=== PATIENT | female | born 1985 | race Caucasian/White ===

== ENCOUNTER 2017-04-26 18:18 | Outpatient (CLI) | payer OTHER ==
[2017-04-26 18:50] VITALS: BP 114/64
[2017-04-26] MEDS ORDERED: PREN-127 PO (18:59)
--- NOTE | 2017-04-26 20:41 | History & Physical ---
History of Present Illness Age of Patient: 31 : 2 Para or TPAL: 1001 EDC per LMP: June 13, 2017 EDC per U/S: June 13, 2017 Estimated Gestational Age: 33.1 Chief Complaint Contractions. History of Present Illness Comes to OB unit due to uterine contractions Q 3-10 minutes that started at about 1600 hours today. After arrival to the hospital, the contractions almost resolved, and she's had only a couple contractions in the last couple of hours. No vaginal bleeding lately, no fluid leakage. She has a history of placenta previa noted on anatomic ultrasound at about 20 weeks, which then became a low- lying placenta. She's had intermittent spotting during this , which resolved 2 weeks ago. She will have at least 1 more ultrasound. No other complications with this . Fetus remains active. record is unavailable at this time. History Obstetrical History: Previous 40 week vaginal delivery. Past Medical History: Augmentation mammoplasty in 2002 Allergies: Coded Allergies: Sulfa (Sulfonamide Antibiotics) (Verified Allergy, Unknown, UNKNOWN, ) REACTION CHILD Social History: , present and supportive. Denies use of alcohol, tobacco, or illicit drugs. Med Rec Home Meds Reported Medications Vits W-Ca,Fe,Fa(<1MG) ( VITAMINS) 1 Each Tablet, 1 EACH PO DAILY, TAB 04/26/17 Review of Systems All Systems Reviewed/Normal: Yes Exam General Exam Vital Signs Vital Signs Date Time Temp Pulse Resp B/P (MAP) Pulse Ox O2 Delivery O2 Flow Rate FiO2 04/26/17 18:50 99.6 91 20 114/64 (81) 95 Room Air General Apperance: Alert/Awake/No Acute Distress Neuro: No Gross deficits Eyes: Normal Extraocular Movement & Vison ENT: Normal, Moist Mucous Membranes Neck: No Masses Cardiovascular: Regular Rate and Rhythm Respiratory: No Respiratory Distress, Clear to Auscultation Abdomen: Gravid - Non-Tender : No CVA Tenderness Musculoskeletal: No Weakness/Pain Extremities: No Cyanosis,Clubbing or Edema, Reflexes (2+/4 and symmetric), No Tender Calves Integumentary: Skin Intact without Lesions or Rash Psychological: Alert & Oriented X3, Appropriate Mood & Affect Cervical Dialation: 0 (internal os closed, external os 2 cm) Cervical Effacement (%): 0 Cervical Consistency: Firm Cervical Position: Mid Station: -2 Presentation: Vertex Fetus Heart Tones: 140 FHT Category: I Medical Decision Making VTE Prophylasis: Adult Pharmacological Contraindicati: Pt at Low Risk for VTE Mechanical Contraindications: Pt at Low Risk for VTE Assessment and Plan Problems: (1) uterine contractions Assessment & Plan: Since patient's contractions are now minimal, and since there is no cervical change, I don't think that fFN is indicated at this time. She is sent home with PTL precautions. She will return to keep her clinic appointment in 1 week. (2) with 33 completed weeks gestation Copies to: KYRA ELIAS MD, MARK F MD Apr 26, 2017 20:23
== END 2017-04-26 21:00 | disposition home or self-care (01) ==
LOC: OB 18:18 → L&D 18:18 → UNDOADMOB 18:18 → OB 18:18 → L&D 21:00 → UNDODISOB 21:00 → OB 21:00
PROVIDERS: ATTEND Obstetrics & Gynecology
DX: O47.03 False labor before 37 completed weeks of gestation, third trimester (principal); Z3A.33 33 weeks gestation of pregnancy
CPT/HCPCS: 59025; 81001; 99213; G0378; G0379

== ENCOUNTER → 2017-05-15 | Outpatient (REF) | payer OTHER ==
[~2017-05-15] MED LIST: PREN-127 PO
== END ==
LOC: ZZSENDIN 14:14
PROVIDERS: ATTEND Obstetrics & Gynecology
DX: O42.00 Premature rupture of membranes, onset of labor within 24 hours of rupture, unspecified weeks of gestation (principal)
CPT/HCPCS: 84112

== ENCOUNTER 2017-06-06 05:38 | Inpatient (IN) | payer OTHER ==
[~2017-06-06] VITALS: Ht 167.6 cm; Wt 76.2 kg
[2017-06-06] MEDS ORDERED: DLR(*) 1000 ML BAG 1,000 ML IV SCH (05:39)
[2017-06-06] MEDS ORDERED: OXYTOCIN 30 UNIT/D5LR 500 ML 500 ML IV PRN ×2 (05:39)
[2017-06-06] MEDS ORDERED: FAMOTIDINE(*) 20MG/50ML PREMIX 50 ML IVPB PRN (05:39)
[2017-06-06] MEDS ORDERED: LIDOCAINE/SOD BICARB 8.4% SYR SC PRN (05:40)
[2017-06-06] MEDS ORDERED: METOCLOPRAMIDE 10 MG/2 ML SDV IVP PRN (05:40)
[2017-06-06] MEDS ORDERED: cefOXitin/DEX(*) 2GM/50ML PREM 50 ML IVPB PRN (05:40)
[2017-06-06] MEDS ORDERED: TERBUTALINE SULF 1 MG/ML VIAL SUBQ PRN (05:40)
[2017-06-06] MEDS ORDERED: fentaNYL CITR 100 MCG/2 ML AMP IVP PRN (05:40)
[2017-06-06] MEDS ORDERED: LIDOCAINE 1% LOCAL 300 MG/30ML INJ PRN (05:40)
[2017-06-06] MEDS ORDERED: MISOPROSTOL 25 MCG CAP PV PRN (05:40)
[2017-06-06] MEDS: LR(*) 1000 ML BAG 1,000 ML IV SCH ×2 (06:28→10:18)
[2017-06-06 06:32] LABS: PLATELET COUNT, AUTOMATED 269 K/uL (150-450)
[2017-06-06 07:43] VITALS: BP 135/86; Ht 167.6 cm; Wt 76.2 kg
--- NOTE | 2017-06-06 08:39 | History & Physical ---
History of Present Illness Age of Patient: 31 : 2 Para or TPAL: 1001 EDC per LMP: June 13, 2017 Estimated Gestational Age: 39 Chief Complaint IOL History of Present Illness The patient is a 31 year old 2 para 1001 admitted at 39 weeks estimated gestational age with an estimated date of delivery 04/13/17 . Patient is admitted for induction of labor for favorable cervix at term . No vaginal bleeding. Good movement and occasional contractions. She was evaluated for active labor. She had an uncomplicated course. Her record was reviewed. History Allergies: Coded Allergies: Sulfa (Sulfonamide Antibiotics) (Verified Allergy, Unknown, UNKNOWN, ) REACTION CHILD Social History: , present and supportive. Denies use of alcohol, tobacco, or illicit drugs. Family History: No Family History of: FH: asthma FH: diabetes mellitus FH: heart disease FH: hypertension Malignant hyperthermia Med Rec Home Meds Reported Medications Vits W-Ca,Fe,Fa(<1MG) ( VITAMINS) 1 Each Tablet, 1 EACH PO DAILY, TAB 04/26/17 Exam General Exam Vital Signs Vital Signs Date Time Temp Pulse Resp B/P (MAP) Pulse Ox O2 Delivery O2 Flow Rate FiO2 06/06/17 07:43 88 15 135/86 (102) 97 Room Air Cardiovascular: Regular Rate and Rhythm Respiratory: Clear to Auscultation Abdomen: Gravid - Non-Tender Extremities: No Edema Cervical Dialation: 3 (RN) Uterine Contractions(Q min): 3 Fetus Heart Tones: 150 Heart Tone Variabilty: Moderate FHT Category: I Medical Decision Making Data Points Result Diagram: 06/06/17 0620 Assessment and Plan Problems: (1) , normal subsequent Assessment & Plan: PITOCIN STARTED FOR FAVORABLE CERVIX AT TERM FOR INDUCTION. AROM CLEAR FLUID ANTICIPATE VAGINAL DELIVERY Copies to: MAXIMUS CARDOSO MD, JOHN MD Jun 06, 2017 08:38
[2017-06-06] MEDS ORDERED: fentaNYL CITR 100 MCG/2 ML AMP IT PRN (10:05)
[2017-06-06] MEDS ORDERED: LIDOCAINE/PF 2% 200MG/10ML AMP 200 MG/10 ML AMPUL EPI PRN (10:05)
[2017-06-06] MEDS ORDERED: BUPIVACAINE 0.5% INJ 30ML VIAL EPI PRN (10:05)
[2017-06-06] MEDS ORDERED: EPHEDRINE SULFATE/NS/PF 50 MG/10 ML SYRINGE IVP PRN (10:05)
[2017-06-06] MEDS ORDERED: LIDO/EPI 2% MPF 1:200,000 20ML EPI PRN (10:05)
[2017-06-06] MEDS ORDERED: FENTANYL/ROPIVACAINE 100 ML BAG EPI PRN (10:05)
[2017-06-06] MEDS ORDERED: EPIDURAL KEYS XX PRN (10:05)
[2017-06-06] MEDS ORDERED: BUPIVACAINE 0.25% MPF INJ EPI PRN (10:05)
[2017-06-06] MEDS ORDERED: ePHEDrine 25 MG/5 ML DISP.SYR IVP PRN (10:20)
--- NOTE | 2017-06-06 11:03 | OB Delivery Note ---
Delivery Note Vaginal Delivery Type: Spont. Vaginal Delivery Delivery Date: Jun 06, 2017 Delivery Time: 10:46 Estimated Gestational Age(wks): 39 Delivery Anesthesia: Epidural, Local Infant Sex: Female Weight (gms): 27[address] Apgars: 1 Minute (9), 5 Minute (9) Repair Needed: Laceration, Superficial, Perineal Estimated Blood Loss: 400 Delivery Complications: Nuchal Cord Notes: IOL WITH PITOCIN, PROGRESSED RAPIDLY TO COMPLETE, RECEIVED EPIDURAL, PUSHED EFFECTIVELY, SUPERFICIAL LACERATION REPAIRED WITH 3-0 VICRYL. NO COMPLICATIONS Production Coordinator in Attendence: No Copies to: MAXIMUS CARDOSO MD, JOHN MD Jun 06, 2017 11:03
[2017-06-06] MEDS ORDERED: GLYCERIN/WITCH HAZEL LEAF 1 PK TP PRN (11:05)
[2017-06-06] MEDS ORDERED: ACETAMINOPHEN 325 MG TAB PO PRN (11:05)
[2017-06-06] MEDS ORDERED: LANOLIN OINT 7 GM TUBE TP PRN (11:05)
[2017-06-06] MEDS ORDERED: MAGNESIUM HYDROXIDE* 30ML UDCP PO PRN (11:05)
[2017-06-06] MEDS ORDERED: BENZOCAINE 20% 60 ML BTL TP PRN (11:05)
[2017-06-06] MEDS ORDERED: HYDROmorphone HCL 2 MG TAB PO PRN (11:05)
[2017-06-06] MEDS ORDERED: HYDROCORTISONE 2.5% CR 30GM TB PR PRN (11:05)
--- NOTE | 2017-06-06 11:30 | Anesthesia OB Pre-Anes Eval ---
History of Present Illness Anesthesia Start Date: Jun 06, 2017 Anesthesia Start Time: 10:20 OB Anesthesia Diagnosis: induction - elective Complications: None known EDC: Jul 14, 2017 : 2 Para: 1 Vital Signs: Vital Signs Date Time Temp Pulse Resp B/P (MAP) Pulse Ox O2 Delivery O2 Flow Rate FiO2 06/06/17 07:43 88 15 135/86 (102) 97 Room Air Pain Ratin Heart Tones: WNL Result Diagram: 06/06/17 0620 Height (Inches): 66.00 Weight (Pounds): 168 BMI Calculated: 27.11 Past Medical History Medical History: no pertinent history Surgical History: other (Br Sep.) Previous Anesthesia: general, epidural Attended Childbirth Classes?: No Hx Anesthesia Reactions: No Hx Family Anesthesia Reaction: No Home Meds Reported Medications Vits W-Ca,Fe,Fa(<1MG) ( VITAMINS) 1 Each Tablet, 1 EACH PO DAILY, TAB 04/26/17 Allergies: Coded Allergies: Sulfa (Sulfonamide Antibiotics) (Verified Allergy, Unknown, UNKNOWN, ) REACTION CHILD Anesthesia OB ROS Neurological: No migraines/headaches, No seizures, No neuropathy Eyes ROS: other (unknown) ENT: Denies Tooth caps, Denies Loose teeth, Denies Chipped teeth, Denies Dentures, Denies Bridges, Denies Retainers, Denies Veneers, Denies Implants, Denies Tongue ring Pulmonary: No asthma, No smoker (pks/day/yrs) Airway Class: ll Cardiovascular ROS: No edema, No arrhythmia GI ROS: clear liquids Last Solids Date: Jun 06, 2017 Last Solids Time: 07:00 ROS: No Herpes, No STD(s), No Liver Disease, No Renal Disease Endocrine ROS: No diabetes, No gestational diabetes, No thyroid disorder Musculoskeletal ROS: No low back pain, No low back injury, No scoliosis Assessment and Plan Anesthesia Plan: CSE Assessment Past Medical, Surgical, Family and Obstetric Histories reviewed. Please see ACOG chart. Epidural anesthesia risks, complications and benefits explained to patient's satisfaction for labor and vaginal delivery and/or section. In between contractions, pt. states she had a numb foot for a week after her last epidural. Pt. almost completely dilated but states she still wants an epidural and promises to sit in position for it. Pt. screaming loudly during contractions. HILDA TILLMAN CRNA Jun 06, 2017 11:30
--- NOTE | 2017-06-06 11:39 | Procedure Note ---
Anesthetic Placement Note Anesthesia Plan: CSE Permit for Anesthesia Signed: Yes Anesthesia Technique: Patient Sitting Anesthesia Prep: Chlorhexidine Interspace: L 3-4 Local Anesthetic: 1% Lidocaine, 25 Gauge Needle Amount Local - cc's: 2 Anesthesia Needle: 17g Touhy/Schliff Anesthesia Attempts: 2 Loss of Resistance: Air Depth of SONDRA (cm): 5 Epidural Needle Placement: No CSF, No Blood, No Parasthesia Intrathecal Needle: 27 Gauge Pencan Cerebral Spinal Fluid: Yes, Clear Catheter Insertion (cm): 7 Catheter Type: Pantoja - Spring Wound Epidural Dressing: Tegaderm, Tape, Adhesive [place] Anesthesia Tray: Lot Number ([id number]), Expiration Date (2018-02-12), Reference Number ([id number]) Anesthesia Medications: Intrathecal Dose: mcg Fentanyl (15), Time (1035) Epidural Test Dose: 1.5 Lido/Epi (1:200,000), Dose - mL (4), Time (1040), Negative Epidural Loading Dose: Dose - ml, Time (1040), Other (Fentenyl 85 mcgs and 4 ml of 1.5% Lidocaine with Epi) Epidural Infusion: Other (none) Complications: Comment: Pt. having extreme difficulty maintaining position for epidural. Screaming during contractions, able to calm in between contractions. Attempts x3 required as pt. would immediately change with start of a contraction. Good SONDRA obtained and intrathecal given followed by threading epidural catheter. Pt. changed to left side and bolus given per epidural while pt. started to push with contractions. HILDA TILLMAN CRNA Jun 06, 2017 11:39
[2017-06-06] MEDS ORDERED: LIDOCAINE 1% LOCAL 300 MG/30ML 30 ML ONE (11:43)
--- NOTE | 2017-06-06 11:46 | Anesthesia Progress Note ---
Progress/Maintenance Anesthesia Note Date: Jun 06, 2017 Anesthesia Note Time: 11:35 Pain Intensity: 0 Motor Level: Bending Knees-Bilateral Position: Semi-Fowlers Assessment and Plan Assessment Patient instructed the first ambulation is to be with help of nursing staff. Instructed to preform deep knee bends at bedside before walking. Anesthesia Stop Day: Jun 06, 2017 Anesthesia Stop Time: 11:00 Epidural Catheter Removal: Removed Catheter Intact, Yes, Removed by: (Farhan Lee CRNA) Removal Date: Jun 06, 2017 Removal Time: 11:45 HILDA LEE CRNA Jun 06, 2017 11:46
[2017-06-06] MEDS: IBUPROFEN 800 MG TAB PO SCH ×2 (12:31→20:51)
[2017-06-06 14:00] VITALS: BP 122/78
[2017-06-06] MEDS ORDERED: HYDR2TAB4 PO (17:05)
[2017-06-06] MEDS ORDERED: IBUP800T37 PO (17:05)
--- NOTE | 2017-06-06 17:06 | OB/GYN Discharge Summary ---
Discharge Summary Reason for Hosp/Final Diag: (1) , normal subsequent (2) care following vaginal delivery Hospital Course & Plan: IOL, Vaginal delivery, on day 1, Pain controlled, Tolerating diet and activity. Baby . Normal lochia. Lates Vital Signs Vital Signs Date Time Temp Pulse Resp B/P (MAP) Pulse Ox O2 Delivery O2 Flow Rate FiO2 06/06/17 12:00 99.4 06/06/17 07:43 88 15 135/86 (102) 97 Room Air Weight (Pounds): 168 Result Diagram: 06/06/17 0620 Condition: Improved Discharge: Home, Self [facility] Meds Active Scripts Ibuprofen (IBUPROFEN) 800 Mg Tablet, 1 TAB PO Q8H, #30 TAB 0 Refills Take with food every 8 hours. Prov:MAXIMUS DESIR MD 06/06/17 Hydromorphone Hcl (HYDROMORPHONE HCL) 2 Mg Tablet, 2-4 MG PO Q4H for PAIN, #20 TAB 0 Refills Prov:MAXIMUS DESIR MD 06/06/17 Reported Medications Vits W-Ca,Fe,Fa(<1MG) ( VITAMINS) 1 Each Tablet, 1 EACH PO DAILY, TAB 04/26/17 Follow up with: Dr. Desir [phone] Follow up in: 6 wks PP or PO Discharge Diet: As Tolerates Discharge Activity: Pelvic Rest Copies to: MAXIMUS DESIR MD, JOHN MD Jun 06, 2017 17:06
[2017-06-06 19:40] VITALS: BP 151/83
[2017-06-06] MEDS ORDERED: DOCUSATE CALCIUM 240 MG CAP PO SCH (21:00)
[2017-06-07 00:30] VITALS: BP 132/77
[2017-06-07 02:56] VITALS: BP 130/69
[2017-06-07] MEDS: IBUPROFEN 800 MG TAB PO SCH (04:41)
[2017-06-07 07:00] VITALS: BP 141/79
--- NOTE | 2017-06-07 07:21 | OB/GYN Progress Note ---
OB Subjective Progress Notes Subjective Pain controlled, Tolerating diet and activity. Baby . Normal lochia. GI: POS Flatus, NEG Nausea, NEG Vomiting : Voiding Well Pain: Mild OB Objective Physical Exam Vital Signs Date Time Temp Pulse Resp B/P (MAP) Pulse Ox O2 Delivery O2 Flow Rate FiO2 06/07/17 07:00 98.2 84 16 141/79 (99) 96 Room Air Cardiovascular: Regular Rate and Rhythm Respiratory: Clear to Auscultation Abdomen: Fundus Firm Extremities: No Edema Result Diagram: 06/07/17 0616 Assessment and Plan Problems: (1) , normal subsequent (2) care following vaginal delivery Assessment & Plan: Pain controlled, Tolerating diet and activity. Baby . Normal lochia. MAXIMUS CARDOSO MD Jun 07, 2017 07:21
[2017-06-07] MEDS ORDERED: INFLUENZA VIRUS VAC 0.5 ML SYR IM ONLY ONE (09:00)
[2017-06-07] MEDS ORDERED: MEASLES,MUMP,RUBELLA VAC 0.5ML SUBQ ONE (09:00)
[2017-06-07] MEDS ORDERED: MULTIVITAMINS (PRENATAL) TAB PO SCH (09:00)
[2017-06-07] MEDS ORDERED: DIPHTH/TETANUS/ACEL. PERTUSSIS IM ONLY ONE (09:00)
== END 2017-06-07 12:05 | disposition home or self-care (01) | DRG 775 ==
LOC: OB 05:38
PROVIDERS: ADMIT Obstetrics & Gynecology; ATTEND Obstetrics & Gynecology
PROC: 10E0XZZ Delivery of Products of Conception, External Approach (ICD-10-PCS; principal; 2017-06-06)
PROC: 10907ZC Drainage of Amniotic Fluid, Therapeutic from Products of Conception, Via Natural or Artificial Opening (ICD-10-PCS; 2017-06-06)
PROC: 0HQ9XZZ Repair Perineum Skin, External Approach (ICD-10-PCS; 2017-06-06)
PROC: 3E033VJ Introduction of Other Hormone into Peripheral Vein, Percutaneous Approach (ICD-10-PCS; 2017-06-06)
DX: O69.81X0 Labor and delivery complicated by cord around neck, without compression, not applicable or unspecified (principal); O70.0 First degree perineal laceration during delivery; Z3A.39 39 weeks gestation of pregnancy; Z37.0 Single live birth; Z88.2 Allergy status to sulfonamides
CPT/HCPCS: 36415; 85025; 85027; 86850; 86900; 86901; J2590; J3010; J7120; S0020

== ENCOUNTER 2018-03-16 02:15 | Day surgery (SDC) | payer OTHER ==
[2017-06-06 07:43] VITALS: Ht 167.6 cm; Wt 61.7 kg
[~2018-03-16] VITALS: Ht 167.6 cm; Wt 61.7 kg
[2018-03-16] VITALS (12 sets, daily range): BP systolic 86–127; BP diastolic 58–94
[~2018-03-16 02:15] MED LIST changes: +CLIN300C99 PO; +HYDR2TAB4 PO; +IBUP800T37 PO
[2018-03-16] MEDS ORDERED: FAMOTIDINE 20 MG TAB PO ONE (12:30)
[2018-03-16] MEDS ORDERED: MIDAZOLAM 2 MG/2 ML VIAL IVP PRN (12:30)
[2018-03-16] MEDS ORDERED: NORMOSOL R SOLN(*) 1000 ML BAG 1,000 ML IV PRN (12:30)
[2018-03-16] MEDS ORDERED: LIDOCAINE/SOD BICARB 8.4% SYR ID ONE (12:30)
[2018-03-16] MEDS ORDERED: PIPERACILLIN/TAZO*3.375GM VIAL 3.375 GM in NS(*) 0.9% 100 ML ADDVANT BAG 100 ML IVPB ONE (12:50)
[2018-03-16] MEDS ORDERED: fentaNYL CITR 100 MCG/2 ML AMP ONE ×4 (12:54→14:26)
[2018-03-16] MEDS ORDERED: PROPOFOL EMUL(*) 10MG/ML 20 ML 20 ML ONE (12:54)
[2018-03-16] MEDS ORDERED: LIDOCAINE MPF 1% 5 ML VIAL ONE (12:54)
[2018-03-16] MEDS ORDERED: ONDANSETRON 4 MG/2 ML VIAL ONE ×2 (12:54→17:28)
[2018-03-16] MEDS ORDERED: DEXAMETHASONE SOD 4 MG/ML VIAL ONE (12:54)
[2018-03-16] MEDS ORDERED: KETAMINE HCL 200 MG/20 ML MDV ONE (12:55)
--- NOTE | 2018-03-16 12:58 | Gen Surgery History & Physical ---
History of Present Illness Chief Complaint perineal pain History of Present Illness 32 yo female with 5-6 days of severe constant perineal pain. Has not responded to sitz bath and PO antibiotics. No FCS. No other GI or s/s. No hx IBD. No prior abscess. History Unable To Obtain Past Medical: Home Meds Reported Medications Clindamycin Hcl (CLINDAMYCIN HCL) 300 Mg Capsule, 300 MG PO BID, #40 CAPSULE 03/15/18 Vits W-Ca,Fe,Fa(<1MG) ( VITAMINS) 1 Each Tablet, 1 EACH PO DAILY, TAB 04/26/17 Discontinued Scripts Ibuprofen (IBUPROFEN) 800 Mg Tablet, 1 TAB PO Q8H, #30 TAB 0 Refills Take with food every 8 hours. Prov:MAXIMUS CARDOSO MD 06/06/17 Hydromorphone Hcl (HYDROMORPHONE HCL) 2 Mg Tablet, 2-4 MG PO Q4H for PAIN, #20 T AB 0 Refills Prov:MAXIMUS CARDOSO MD 06/06/17 Allergies: Coded Allergies: BEE STINGS (Verified Allergy, Severe, ANAPHYLAXIS , 03/15/18) Sulfa (Sulfonamide Antibiotics) (Verified Allergy, Intermediate, PLATELET COUNT DROPS-BRUISES , 03/15/18) REACTION CHILD Patient History: No Family History of: FH: asthma FH: diabetes mellitus FH: heart disease FH: hypertension Malignant hyperthermia Review of Systems All Systems Reviewed/Normal: Yes, Except as Noted Gastrointestinal: Other (see HPI) Genitourinary: Other (see HPI) Exam General Appearance: Alert, Awake, No Acute Distress, Afebrile Neuro: No Gross deficits Cardiovascular: Normal Rhythm & Peripheral Pulses, Regular Rate and Rhythm Respiratory: No Respiratory Distress, Clear to Auscultation GI: Abd Soft and Non-Tender : Other (perineal exam with tender, visible fluctuant mass at left perineal body region ) Musculoskeletal: No Weakness/Pain Integumentary: Skin Intact without Lesion / Mass Psych: Alert & Oriented X3, Appropriate Mood & Affect Medical Decision Making EKG / Imaging Monitor Interpretation: Normal Sinus Rhythm Pre-Admit Course Medical Record Review: Yes Assessment and Plan Problems: (1) Perineal abscess Status: Acute Assessment & Plan: 32 yo female with increasingly symptomatic and enlarging left perineal abscess which has not responded to aggressive non-operative management for the past week. She has been recommended to undergo EUA, with incision and drainage. Pt understands she will likely have an open wound which will require packing. Proc, risks, benefits, and alternative treatment discussed at length with pt. She understands risk of residual/recurrent abscess, scar, deformity, incontinence, need to heal by secondary intention, ongoing infection, bleeding, and need for further operative intervention. All questions answered and informed consent signed. Time Spent: > 30 min Venous Thromboembolism VTE Risk Physician Assess for VTE Risk: Yes Patient's VTE Risk: Low VTE Diagnostic Test 2 Days Prior to Admit: No Antithrombotics Is Pt On Any Antithrombotics?: No MAN KERN MD Mar 16, 2018 12:58
[2018-03-16] MEDS ORDERED: BUPIV/EPI 0.25% 1:200,000 50ML INFIL ONE (13:16)
[2018-03-16] MEDS ORDERED: HYDR-653 PO (13:59)
--- NOTE | 2018-03-16 14:18 | Post Operative Progress Note ---
Post Operative Progress Note Date: Mar 16, 2018 Time: 14:16 Surgeon: Man Garcia MD Academic Vice President: none Anesthesia: General Dr Crump Pre-Op Diagnosis: perianal abscess Post-Op Diagnosis: same Findings: pooja pus Procedure(s): EUA with incision and drainage perianal abscess Specimen Removed:(May be N/A): pus Complications: none Total Tourniquet Time: NA Splint: NA Fluids: see anesthesia record Estimated Blood Loss: < 5ml Date OP Note Dictated: Mar 16, 2018 Time OP Note Dictated: 14:17 (dictation # [id number]) MAN GARCIA MD Mar 16, 2018 14:18
[2018-03-16] MEDS ORDERED: PROMETHAZINE 25 MG/ML 1 ML AMP ONE (14:36)
[2018-03-16] MEDS ORDERED: KETOROLAC 30 MG/ML VIAL ONE (14:48)
[2018-03-16] MEDS ORDERED: ACETAMINOPHEN(*)1000 MG/100 ML 100 ML IVPB ONE (14:49)
[2018-03-16] MEDS ORDERED: HYDROmorphone HCL 2 MG/ML SDV ONE (15:04)
--- NOTE | 2018-03-16 15:22 | OPERATIVE REPORT 1 ---
EVENT DATE: March 16, 2018 SURGEON: Kateryna Garcia MD, FACS ANESTHESIOLOGIST: Deny Crump MD ANESTHESIA: General endotracheal anesthesia. PREOPERATIVE DIAGNOSIS Perianal abscess. POSTOPERATIVE DIAGNOSIS Perianal abscess. PROCEDURES PERFORMED 1. Examination under anesthesia. 2. Incision and drainage of perianal abscess. INDICATIONS FOR OPERATION This patient is a 32-year-old female with an enlarging, painful mass in the perineal region which has not responded to outpatient antibiotics and other aggressive nonoperative measures. She is brought to the operating room at this time for incision and drainage. FINDINGS AT TIME OF OPERATION The patient had a 2 x 3 x 3 cm abscess within the perineal body with a large fluctuant area. This was unable to be aspirated with a 14-gauge needle. Upon open excision of this, a large amount of pooja pus was evacuated under pressure. DETAILS OF THE OPERATION On 03/16/2018, patient was brought to the operating room and placed in the supine position. Appropriate lines and monitors were placed. She was induced and intubated under general anesthesia without difficulty. She was then placed in the dorsal lithotomy position. She was then prepped and draped in the usual sterile manner. The digital rectal examination and anoscopy did not reveal any obvious fissure or fistula tract. A 14-gauge needle was inserted into the mass, and no fluid was able to be aspirated. Thus, the lesion was opened over its most fluctuant area using sharp dissection for a length of 1 to 2 cm. A moderate to large amount of pooja pus was evacuated. All loculations were debrided using careful blunt dissection. The wound cavity was irrigated copiously with sterile saline until the effluent was clean. Hemostasis was obtained using electrocautery. The wound was then packed with 1/4-inch Nu Gauze. She was then returned to the supine position. She was then extubated and taken to the recovery room in stable condition. She tolerated the procedure well. Estimated blood loss minimal. Final sponge and needle count correct times two. MTDD
--- NOTE | 2018-03-16 15:38 | NUR ---
1538- PT BROUGHT TO STEP DOWN PHASE 2 BAY 4, PT IS A/O X 3, SHE IS IN SF POSITION TILTED TO HER RIGHT SIDE, PT REPORTS PAIN 4/10 ON SCALE, DENIES NAUSEA AT THIS TIME, VSS, PT ON 0.5LPM VIA NC, PT MAINTAINING SATS, RESPIRATIONS AND AIRWAY, WILL CONTINUE TO MONITOR, SBAR REPORT FROM BRITNI CARDENAS 1546- [place] AT BEDSIDE 1550- PT TOLERATING CHEESE, BIANKA CRACKERS AND SPRITE 1610- CONTACTED DR. KERN REGARDING PRESCRIPTION FOR NAUSEA, TO RUN ERRANDS AND ELECTRICAL CONTROLS DESIGNER SCRIPT 1611- PT PLACED ON RA, WILL CONTINUE TO MONITOR PT 1612- PT FELT "TRICKLING/WET" CHECKED JARAD-RECTAL AREA, SCANT BLOOD NOTED ON JARAD PAD, NOTED TIP OF PACKING FROM RECTUM 1615- PO ANALGESIA GIVEN TO PT SEE EMAR FOR DETAILS 1617- PT WOULD LIKE TO REST, LIGHTS LOWERED, CALL LIGHT WITHIN REACH 1627- CALLED ANTI-IMETIC TO [facility]
[2018-03-16] MEDS ORDERED: APAP/HYDROCODONE 325/5 TAB ONE (16:12)
[2018-03-16] MEDS ORDERED: ONDA4TAB9 PO ×2 (16:49→16:50)
--- NOTE | 2018-03-16 17:00 | NUR ---
1700- PT RESTING WITH EYES SHUT, MAINTAINING SATS, RESPIRATIONS AND AIRWAY ON RA
--- NOTE | 2018-03-16 17:17 | NUR ---
1717- PT AWAKE, WANTING TO GO HOME, VSS, BACK FROM PICKING UP PRESCRIPTIONS 1718- SL IV
--- NOTE | 2018-03-16 17:22 | NUR ---
1722- DENIES DIZZINESS, REPORTS NAUSEA DURING SITTING VS, PT TO LIE BACK DOWN IN BED, WET WASHCLOTH PLACED ON FOREHEAD, EMESIS BAG WITH PT
--- NOTE | 2018-03-16 17:37 | NUR ---
1736- HUNG SECOND BAG OF FLUIDS D/T LOW BP'S, FLUSHED IV AND IV INFUSION STARTED OF NR, PT FEELING BETTER, DENIES WANTING IV ZOFRAN AT THIS TIME.
--- NOTE | 2018-03-16 17:40 | NUR ---
1740- PT TOLERATING SECOND CAN OF SPRITE, RESTING
--- NOTE | 2018-03-16 17:54 | NUR ---
1754- PT REPORTS MILD NAUSEA, 500NR HAS BEEN INFUSED WILL CHECK BP SEE VS CHART FOR DETAILS
--- NOTE | 2018-03-16 18:15 | NUR ---
1815- PT TOLERATING SPRITE, CHEESE AND CRACKERS
--- NOTE | 2018-03-16 18:20 | NUR ---
1820- IV ZOFRAN ADMINISTERED FOR NAUSEA
--- NOTE | 2018-03-16 18:25 | NUR ---
1825- AR REPORT GIVEN TO Shanda BROWN RN
== END 2018-03-16 15:38 | disposition home or self-care (01) ==
LOC: OR 02:15
PROVIDERS: ATTEND Surgery
DX: K61.0 Anal abscess (principal)
CPT/HCPCS: 46050; 81025; J0131; J1100; J1170; J1885; J2001; J2250; J2405; J2543; J2550; J2704; J3010; J3490; J7050

== ENCOUNTER 2018-03-19 13:30 | Emergency (ER) | payer OTHER ==
[2017-06-06 07:43] VITALS: Wt 63.5 kg
[~2018-03-19 13:30] MED LIST changes: +HYDR-653 PO; +ONDA4TAB9 PO
--- NOTE | 2018-03-19 13:43 | ER Report ---
History and Physical Time Seen By MD: 13:43 Hx. of Stated Complaint: PT REPORTS SHARP LEFT SIDED CHEST PAIN STARTED AT 1200 TODAY, REPORTS PERIANAL ABSCESS SURGERY MONDAY HPI/ROS CHIEF COMPLAINT: Chest pain HISTORY OF PRESENT ILLNESS: 32-year-old female patient presents to emergency room with complaint of chest pain. Patient states this started today. She states the pain started out of nowhere. She states that she has worsening pain with taking a deep breath. She states that the pain is on the left side of her chest. She states that with palpation she has some tenderness in the lower left rib cage. Patient states she is not taking any medication for this. She states she did not feel short of breath, however stated become concerned about the chest pain and was concerned that she may passed out. She states that she did write down the time the chest pain started being afraid she is going to pass out. She states that when she is changing her daughter's diaper a few minutes later she had significant pain. She states that she actually went down to her knees. At that time she contact her and he came and brought her to the emergency room. REVIEW OF SYSTEMS: Respiratory: No cough, no dyspnea. Cardiovascular: As noted above Gastrointestinal: No vomiting, no abdominal pain. Musculoskeletal: No back pain. Allergies: Coded Allergies: BEE STINGS (Verified Allergy, Severe, ANAPHYLAXIS , 03/19/18) Sulfa (Sulfonamide Antibiotics) (Verified Allergy, Intermediate, PLATELET COUNT DROPS-BRUISES , 03/19/18) REACTION CHILD Home Meds Active Scripts Diclofenac Sodium (DICLOFENAC SODIUM) 75 Mg Tablet.dr, 75 MG PO BID, #14 TAB Prov:TRES HUTCHINSON 03/19/18 Hydrocodone Bit/Acetaminophen (NORCO 5-325 TABLET) 1 Each Tablet, 1 EACH PO q 6 prn for PAIN, #14 TAB 0 Refills Prov:MAN KERN MD 03/16/18 Reported Medications Ondansetron 4 Mg Odt (ONDANSETRON 4 MG ODT) 4 Mg Tab.rapdis, 4 MG PO Q8H for Nausea, #15 TAB 03/16/18 Vits W-Ca,Fe,Fa(<1MG) ( VITAMINS) 1 Each Tablet, 1 EACH PO DAILY, TAB 04/26/17 Discontinued Reported Medications Ondansetron 4 Mg Odt (ONDANSETRON 4 MG ODT) 4 Mg Tab.rapdis, 4 MG PO Q8H for Nausea, #15 TAB 03/16/18 Clindamycin Hcl (CLINDAMYCIN HCL) 300 Mg Capsule, 300 MG PO BID, #40 CAPSULE 03/15/18 Discontinued Scripts Ibuprofen (IBUPROFEN) 800 Mg Tablet, 1 TAB PO Q8H, #30 TAB 0 Refills Take with food every 8 hours. Prov:MAXIMUS CARDOSO MD 06/06/17 Hydromorphone Hcl (HYDROMORPHONE HCL) 2 Mg Tablet, 2-4 MG PO Q4H for PAIN, #20 TAB 0 Refills Prov:MAXIMUS CARDOSO MD 06/06/17 Past Medical/Surgical History Patient has a past medical history of left ankle fracture. Patient has a surgical history of a perianal abscess which was open and drained, tubes in ears, breast augmentation. Reviewed Nurses Notes: Yes Hx Smoking: No Smoking Status: Never Smoker Exposure to Second Hand Smoke?: No Hx Substance Use Disorder: No Hx Alcohol Use: No Constitutional Vital Sign - Last 24 Hours 03/19/18 03/19/18 03/19/18 03/19/18 13:32 13:33 13:45 14:00 Temp 97.8 Pulse 74 87 88 Resp 16 37 15 B/P (MAP) 132/87 (102) 132/87 124/91 (102) Pulse Ox 97 97 96 O2 Delivery Room Air 03/19/18 03/19/18 03/19/18 03/19/18 14:15 14:30 14:45 15:00 Pulse 71 67 72 72 Resp 17 16 19 14 B/P (MAP) 126/86 (99) 133/83 (100) Pulse Ox 94 96 97 97 03/19/18 03/19/18 03/19/18 15:15 15:30 15:45 Pulse 86 66 68 Resp 14 17 18 B/P (MAP) 128/85 (99) Pulse Ox 88 99 96 Physical Exam General Appearance: The patient is alert, has no immediate need for airway protection and no current signs of toxicity. Respiratory: Chest is tender under her left breast, lungs are clear to auscultation. Cardiac: regular rate and rhythm Gastrointestinal: Abdomen is soft and non tender, no masses, bowel sounds normal. Musculoskeletal: Neck: Neck is supple and non tender. Extremities have full range of motion and are non tender. Skin: No rashes or lesions. DIFFERENTIAL DIAGNOSIS: After history and physical exam differential diagnosis was considered for chest pain including but not limited to myocardial ischemia, pericarditis pulmonary embolus, chest wall pain, pleural inflammation and pulmonary infectious causes. Medical Decision Making Data Points Result Diagram: 03/19/18 1342 03/19/18 1342 Laboratory Hematology Test 03/19/18 13:42 Red Blood Count 4.92 M/uL (4.17-5.56) Mean Corpuscular Volume 88.5 fL (80.0-96.0) Mean Corpuscular Hemoglobin 29.7 pg (26.0-33.0) Mean Corpuscular Hemoglobin Concent 33.5 g/dL (32.0-36.0) Red Cell Distribution Width 12.3 % (11.5-14.5) Mean Platelet Volume 7.2 fL (7.2-11.1) Neutrophils (%) (Auto) 51.4 % (39.4-72.5) Lymphocytes (%) (Auto) 35.5 % (17.6-49.6) Monocytes (%) (Auto) 9.3 % (4.1-12.4) Eosinophils (%) (Auto) 2.9 % (0.4-6.7) Basophils (%) (Auto) 0.9 % (0.3-1.4) Nucleated RBC Relative Count (auto) 0.1 /100WBC Neutrophils # (Auto) 2.4 K/uL (2.0-7.4) Lymphocytes # (Auto) 1.7 K/uL (1.3-3.6) Monocytes # (Auto) 0.4 K/uL (0.3-1.0) Eosinophils # (Auto) 0.1 K/uL (0.0-0.5) Basophils # (Auto) 0.0 K/uL (0.0-0.1) Nucleated RBC Absolute Count (auto) 0.00 K/uL D-Dimer Quantitative (PE/DVT) 0.53 ug/ml (0-0.50) Sodium Level 141 mmol/L (137-145) Potassium Level 4.2 mmol/L (3.5-5.0) Chloride Level 108 mmol/L (98-107) Carbon Dioxide Level 28 mmol/L (22-31) Blood Urea Nitrogen 9 mg/dl (7-18) Creatinine 0.70 mg/dl (0.52-1.04) Glomerular Filtration Rate Calc > 60.0 Random Glucose 81 mg/dl (75-110) Calcium Level 9.1 mg/dl (8.4-10.2) Total Bilirubin 0.1 mg/dl (0.2-1.3) Aspartate Amino Transf (AST/SGOT) 28 U/L (0-35) Alanine Aminotransferase (ALT/SGPT) 31 U/L (0-56) Alkaline Phosphatase 72 U/L (0-126) Troponin I < 0.012 ng/ml Total Protein 7.4 g/dl (6.3-8.2) Albumin 4.1 g/dl (3.5-5.0) Human Chorionic Gonadotropin, Qual Negative (NEGATIVE) Chemistry Test 03/19/18 13:42 White Blood Count 4.7 k/uL (4.5-11.0) Red Blood Count 4.92 M/uL (4.17-5.56) Hemoglobin 14.6 g/dL (12.0-16.0) Hematocrit 43.5 % (34.0-47.0) Mean Corpuscular Volume 88.5 fL (80.0-96.0) Mean Corpuscular Hemoglobin 29.7 pg (26.0-33.0) Mean Corpuscular Hemoglobin Concent 33.5 g/dL (32.0-36.0) Red Cell Distribution Width 12.3 % (11.5-14.5) Platelet Count 445 K/uL (150-450) Mean Platelet Volume 7.2 fL (7.2-11.1) Neutrophils (%) (Auto) 51.4 % (39.4-72.5) Lymphocytes (%) (Auto) 35.5 % (17.6-49.6) Monocytes (%) (Auto) 9.3 % (4.1-12.4) Eosinophils (%) (Auto) 2.9 % (0.4-6.7) Basophils (%) (Auto) 0.9 % (0.3-1.4) Nucleated RBC Relative Count (auto) 0.1 /100WBC Neutrophils # (Auto) 2.4 K/uL (2.0-7.4) Lymphocytes # (Auto) 1.7 K/uL (1.3-3.6) Monocytes # (Auto) 0.4 K/uL (0.3-1.0) Eosinophils # (Auto) 0.1 K/uL (0.0-0.5) Basophils # (Auto) 0.0 K/uL (0.0-0.1) Nucleated RBC Absolute Count (auto) 0.00 K/uL D-Dimer Quantitative (PE/DVT) 0.53 ug/ml (0-0.50) Glomerular Filtration Rate Calc > 60.0 Calcium Level 9.1 mg/dl (8.4-10.2) Total Bilirubin 0.1 mg/dl (0.2-1.3) Aspartate Amino Transf (AST/SGOT) 28 U/L (0-35) Alanine Aminotransferase (ALT/SGPT) 31 U/L (0-56) Alkaline Phosphatase 72 U/L (0-126) Troponin I < 0.012 ng/ml Total Protein 7.4 g/dl (6.3-8.2) Albumin 4.1 g/dl (3.5-5.0) Human Chorionic Gonadotropin, Qual Negative (NEGATIVE) Coagulation Test 03/19/18 13:42 D-Dimer Quantitative (PE/DVT) 0.53 ug/ml EKG/Imaging EKG Interpretation 12 lead EKG: Rhythm: normal sinus rhythm [place]: normal QRS: normal ST segments: normal Imaging 2 VIEWS CHEST INDICATION: Left-sided chest pain. Surgery last Monday. Shortness of breath. COMPARISON: None available FINDINGS: Cardiomediastinal silhouette and pulmonary vessels within normal limits. There is no focal infiltrate or lobar consolidation. There is no pneumothorax or pleural effusion. No nodule. Upper abdomen is unremarkable. No acute bony abnormality. IMPRESSION: 1. No acute cardiopulmonary process. Report Dictated By: Guanaco Moon at 03/19/2018 2:38 PM Report E-Signed By: Guanaco Moon at 03/19/2018 2:[address] ANGIOGRAM OF THE CHEST WITH INTRAVENOUS CONTRAST, PE PROTOCOL DATE OF EXAM: 03/19/2018 14:33 COMPARISON: Chest radiograph of the same day INDICATION: Elevated d-dimer with left-sided chest pain. TECHNIQUE: Contrast enhanced chest CT performed during the injection of 75 ml of Isovue 370. Three-dimensional (MIP) reconstructions were performed. FINDINGS: Negative for pulmonary arterial embolus. Thyroid: The imaged portion of the gland appears normal. Thoracic inlet: No thoracic lymphadenopathy. Heart and great vessels: Heart size is normal. Mediastinum and jose antonio: No adenopathy. Lungs and pleura: No effusion, consolidation, or pneumothorax. Breast and axilla: Saline breast implants are intact Bones and soft tissues: No acute osseous abnormality. Upper abdomen: Unremarkable. IMPRESSION: Negative for pulmonary arterial embolus. One of the following dose optimization techniques was utilized in the performance of this exam: Automated exposure control; adjustment of the mA and/or kV according to the patient's size; or use of an iterative reconstruction technique. Specific details can be referenced in the facility's radiology CT exam operational policy. Report Dictated By: Radha Pool MD at 03/19/2018 3:12 PM Report E-Signed By: Radha Pool MD at 03/19/2018 3:21 PM ED Course/Re-evaluation ED Course Patient was noted to in exam room, history and physical were obtained. Differential diagnoses were considered. On examination lungs are clear, heart was regular, abdomen was soft and nontender. Patient did have some tenderness to the left ribs especially under the left breast. An EKG was performed, a CBC, CMP, troponin, d-dimer were done. Labs were unremarkable except the patient did have an elevated d-dimer of 0.53. As result a CT pulmonary angiogram was done which was negative. I discussed the findings with the patient. I believe the patient has costochondritis which is causing her pain. And that's why she's having worsening pain with deep inspiration. Patient has had bronchitis for the past week to 10 days and I believe that is what caused the inflammation of the connective tissue. We will go ahead and place her on diclofenac, she is to take that twice a day for the next week. She is to ice the sore areas her ribs. She is to follow-up with her primary care provider in the next week. Patient verbalized understanding and agreement with plan. Decision to Disposition Date: Mar 19, 2018 Decision to Disposition Time: 15:50 Depart Departure Latest Vital Signs Vital Signs Date Time Temp Pulse Resp B/P (MAP) Pulse Ox O2 Delivery O2 Flow Rate FiO2 03/19/18 15:45 68 18 96 03/19/18 15:30 128/85 (99) 03/19/18 13:33 97.8 Room Air Impression: Primary Impression: Chest pain Additional Impression: Costochondritis Condition: Improved Disposition: HOME OR SELF-CARE New Scripts Diclofenac Sodium (DICLOFENAC SODIUM) 75 Mg Tablet. 75 MG PO BID, #14 TAB Prov: TRES HUTCHINSON 03/19/18 Patient Instructions: Costochondritis (ED) Additional Instructions: Increase fluid intake. Get plenty of rest. Limit activity by pain. Take the medication as prescribed, don't take any Ibuprofen, Aleve, Motrin, Alev e or Advil while taking it. Return to the ER if condition worsens. Ice the ribs 2-3 times a day for 15-20 minutes. You may take Tylenol in addition to the medication. Follow up with your primary care provider in the next week. Problem Qualifiers Primary Impression: Chest pain Chest pain type: other chest pain Qualified Codes: R07.89 - Other chest pain TRES HUTCHINSON Mar 19, 2018 13:43
[2018-03-19] MEDS ORDERED: NS(*) 0.9% 1000 ML BAG 1,000 ML IV ONE (13:51)
[2018-03-19] MEDS ORDERED: ASPIRIN 81 MG CHEW PO ONE (13:55)
--- NOTE | 2018-03-19 13:55 | EKG ---
FACILITY: [facility] PATIENT NAME: DELROY PATEL : [id number] MR: [id number] V: [id number] EXAM DATE: ORDERING PHYSICIAN: TRES HUTCHINSON TECHNOLOGIST: BRIAN Constantino Reason : CP Blood Pressure : / mmHG Vent. Rate : 068 BPM Atrial Rate : 068 BPM P-R Int : 120 ms QRS Dur : 098 ms QT Int : 386 ms P-R-T Axes : 073 080 077 degrees QTc Int : 410 ms Normal sinus rhythm No ST-T abnormalities No previous ECGs available Confirmed by SHIRAZ CHUNG ([id number]) on 03/19/2018 8:40:16 PM Referred By: AMAN Confirmed By:SHIRAZ CHUNG
[2018-03-19 14:13] LABS: PLATELET COUNT, AUTOMATED 445 K/uL (150-450)
--- NOTE | 2018-03-19 14:44 | RADIOLOGY IMAGING REPORT ---
FACILITY: [facility] PATIENT NAME: Ivette Ontiveros : 1985 MR: [id number] V: [id number] EXAM DATE: ORDERING PHYSICIAN: TRES HUTCHINSON TECHNOLOGIST: Location: [facility] Patient: Ivette Ontiveros : 1985 Visit/Account:[id number] Date of Sevice: 03/19/2018 2 VIEWS CHEST INDICATION: Left-sided chest pain. Surgery last Monday. Shortness of breath. COMPARISON: None available FINDINGS: Cardiomediastinal silhouette and pulmonary vessels within normal limits. There is no focal infiltrate or lobar consolidation. There is no pneumothorax or pleural effusion. No nodule. Upper abdomen is unremarkable. No acute bony abnormality. IMPRESSION: 1. No acute cardiopulmonary process. Report Dictated By: Guanaco Moon at 03/19/2018 2:38 PM Report E-Signed By: Guanaco Moon at 03/19/2018 2:39 PM WSN:[id number]
[2018-03-19] MEDS ORDERED: NS(*) 0.9% 50 ML BAG 50 ML ONE (14:53)
--- NOTE | 2018-03-19 15:25 | RADIOLOGY IMAGING REPORT ---
FACILITY: [facility] PATIENT NAME: Ivette Ontiveros : 1985 MR: [id number] V: [id number] EXAM DATE: ORDERING PHYSICIAN: TRES HUTCHINSON TECHNOLOGIST: Location: [facility] Patient: Ivette Ontiveros : 1985 Visit/Account:[id number] Date of Sevice: 03/19/2018 CT ANGIOGRAM OF THE CHEST WITH INTRAVENOUS CONTRAST, PE PROTOCOL DATE OF EXAM: 03/19/2018 14:33 COMPARISON: Chest radiograph of the same day INDICATION: Elevated d-dimer with left-sided chest pain. TECHNIQUE: Contrast enhanced chest CT performed during the injection of 75 ml of Isovue 370. Three-d imensional (MIP) reconstructions were performed. FINDINGS: Negative for pulmonary arterial embolus. Thyroid: The imaged portion of the gland appears normal. Thoracic inlet: No thoracic lymphadenopathy. Heart and great vessels: Heart size is normal. Mediastinum and jose antonio: No adenopathy. Lungs and pleura: No effusion, consolidation, or pneumothorax. Breast and axilla: Saline breast implants are intact Bones and soft tissues: No acute osseous abnormality. Upper abdomen: Unremarkable. IMPRESSION: Negative for pulmonary arterial embolus. One of the following dose optimization techniques was utilized in the performance of this exam: Autom ated exposure control; adjustment of the mA and/or kV according to the patient's size; or use of an i terative reconstruction technique. Specific details can be referenced in the facility's radiology C T exam operational policy. Report Dictated By: Radha Pool MD at 03/19/2018 3:12 PM Report E-Signed By: Radha Pool MD at 03/19/2018 3:21 PM WSN:[id number]
[2018-03-19 15:30] VITALS: BP 128/85
[2018-03-19] MEDS ORDERED: DICL-195 PO (15:51)
== END 2018-03-19 16:08 | disposition home or self-care (01) ==
LOC: ER 13:58
DX: M94.0 Chondrocostal junction syndrome [Tietze] (principal); R07.89 Other chest pain
CPT/HCPCS: 71046; 71275; 84484; 84703; 85025; 85379; 93005; 96360; 96361; 99284; J7030; J7050; 82040; 82247; 82310; 82374; 82435; 82565; 82947; 84075; 84132; 84155; 84295; 84450; 84460; 84520; Q9967

== ENCOUNTER 2018-05-31 01:08 | Day surgery (SDC) | payer OTHER ==
[2017-06-06 07:43] VITALS: Ht 167.6 cm; Wt 64.0 kg
[~2018-05-31] VITALS: Ht 167.6 cm; Wt 64.0 kg
[~2018-05-31 01:08] MED LIST changes: +AMOX-559 PO; +DICL-195 PO
[2018-05-31 06:25] VITALS: BP 120/81
[2018-05-31] MEDS ORDERED: MIDAZOLAM 2 MG/2 ML VIAL IVP PRN (06:45)
[2018-05-31] MEDS ORDERED: FAMOTIDINE 20 MG TAB PO ONE (06:45)
[2018-05-31] MEDS ORDERED: NORMOSOL R SOLN(*) 1000 ML BAG 1,000 ML IV PRN (06:45)
[2018-05-31] MEDS ORDERED: LIDOCAINE/SOD BICARB 8.4% SYR ID ONE (06:45)
[2018-05-31] MEDS ORDERED: metroNIDAZOLE* 500MG/100ML BAG 100 ML IVPB ONE (06:50)
[2018-05-31] MEDS ORDERED: LEVOFLOXACIN/D5W 750 MG/150 ML 150 ML IVPB ONE (06:50)
[2018-05-31] MEDS ORDERED: LIDOCAINE 2% JELLY 30 ML TUBE ONE (07:20)
[2018-05-31] MEDS ORDERED: BUPIVACAINE/EPI 0.5% 50ML VIAL INFIL ONE (07:21)
--- NOTE | 2018-05-31 07:44 | NUR ---
LOCALIZED REDNESS WITH ITCHY FEELING REPORTED BY PT NOTED AT END OF [facility]. MICHEAL WILL NOTIFY DR ARREGUIN IN OR.
[2018-05-31] MEDS ORDERED: fentaNYL CITR 100 MCG/2 ML AMP ONE ×2 (07:48→08:27)
[2018-05-31] MEDS ORDERED: PROPOFOL EMUL(*) 10MG/ML 20 ML 40 ML ONE (07:48)
[2018-05-31] MEDS ORDERED: ONDANSETRON 4 MG/2 ML VIAL ONE ×2 (07:48→08:59)
[2018-05-31] MEDS ORDERED: DEXAMETHASONE SOD PHOS 10MG/ML ONE (07:48)
[2018-05-31] MEDS ORDERED: HYDR-654 PO (09:03)
--- NOTE | 2018-05-31 09:05 | Short(Outpt) Discharge Summary ---
Discharge Summary Reason for Hosp/Final Diag: (1) Perineal abscess Status: Acute Hospital Course & Plan: pt presented for eua and possible fistulotomy placement. no fistula was found. i opened the abscess pocket. she tolerated the procedure well. she will be discharged home when criteria met. Discharge Instructions Home Meds Active Scripts Hydrocodone Bit/Acetaminophen (NORCO 7.5-325 TABLET) 1 Each Tablet, 1 EACH PO Q4H for PAIN, #20 TAB Prov:MARISOL HOOD 05/31/18 Reported Medications Vits W-Ca,Fe,Fa(<1MG) ( VITAMINS) 1 Each Tablet, 1 EACH PO DAILY, TAB 04/26/17 Diet: Regular Activity: As Tolerated Special Instructions: remove packing tomorrow. dress wound as needed. take stool softener while taking pain meds. f/u dr. jacey hood 2 wks ([phone]) MARISOL HOOD May 31, 2018 09:05
[2018-05-31 09:30] VITALS: BP 118/72
[2018-05-31] MEDS ORDERED: APAP/HYDROCODONE 325/7.5 TAB ONE (09:46)
[2018-05-31 10:04] VITALS: BP 116/74
[2018-05-31 10:10] VITALS: BP 121/75
[2018-05-31] MEDS ORDERED: PROMETHAZINE 25 MG/ML 1 ML AMP ONE (10:10)
--- NOTE | 2018-05-31 10:10 | NUR ---
Orthostatic blood pressures WNL, however patient became nauseated and vomited approximately 250ml yellow fluid. Orders received for phenergan however patient states she feels much better after throwing up, declined need for medication at this time. Bowel sounds hypoactive.
--- NOTE | 2018-05-31 10:14 | Post Operative Progress Note ---
Post Operative Progress Note Surgeon: dr. jacey hood #[id number] [employer] Pump Tender: none Anesthesia: gen, local Pre-Op Diagnosis: perianal abscess, poss fistula Post-Op Diagnosis: same Findings: abscess pocket Procedure(s): eua, incision and drainage of abscess pocket Complications: none Fluids: iv crystalloid Estimated Blood Loss: minimal MARISOL HOOD May 31, 2018 10:14
--- NOTE | 2018-05-31 10:51 | OPERATIVE REPORT 1 ---
EVENT DATE: May 31, 2018 SURGEON: Nasir Pimentel MD ANESTHESIOLOGIST: Noe Kessler MD ANESTHESIA: General and local. SAFETY ADMIN ASSISTANT: None. PREOPERATIVE DIAGNOSIS Perianal abscess, possible fistula. POSTOPERATIVE DIAGNOSIS Perianal abscess, possible fistula. PROCEDURE PERFORMED 1. Exam under anesthesia. 2. Incision and drainage of abscess pocket. FLUIDS IV crystalloids. ESTIMATED BLOOD LOSS Minimal. SPECIMENS None. COMPLICATIONS None. INDICATIONS This is a 32-year old female who presented emergently in March for drainage of a perianal abscess. Since that time the abscess has recurred multiple times. Risks and benefits of the procedure were obtained and consent was signed. DESCRIPTION OF PROCEDURE The patient was taken to the operating room and placed in the supine position. General anesthesia was administered per the Anesthesia Team. Patient was placed in stirrups and prepped and draped in sterile fashion. Exam under anesthesia was performed. The entire anal canal was examined as well as the perianal skin by visualization and palpation. The only abnormality was in the left anterior position where some induration could be felt and with pressure a small lesion was identified with some possible fluctuance under it. This was the site of previous drainage. There was no internal or external open wound at this time. Local analgesia was injected and a 0.5 cm incision was made. At most, a very small amount of drainage was returned but no pooja pus. This wound was opened slightly with hemostat. A lacrimal probe was used to gently probe the wound. However, no internal opening was found and, therefore, no fistula was found. There was a small amount of tunneling towards the anal canal but this was very minimal and then there was approximately 1.5 to 2 cm of tunneling away from the anal canal. Again, no pus was returned. I used Peroxide to attempt to find an internal opening. However, no Peroxide was seen in the anal canal. The wound was packed medially towards the anal canal and laterally away from the anal canal with 0.25-inch strip gauze. Only a small amount of strip gauze fit in these wounds. More local analgesia was injected. Appropriate dressings were applied. Patient tolerated the procedure well. There were no complications. MTDD
== END 2018-05-31 09:29 | disposition home or self-care (01) ==
LOC: OR 01:08
PROVIDERS: ATTEND Surgery
DX: K61.0 Anal abscess (principal)
CPT/HCPCS: 46050; 81025; J1100; J1956; J2405; J2704; J3010; J3490